=== PATIENT | female | born 1945 | race Caucasian/White ===

== ENCOUNTER 2017-07-12 05:40 | Day surgery (SDC) | payer OTHER, MEDICARE ==
[~2017-07-12] VITALS: Ht 162.6 cm; Wt 81.6 kg
[2017-07-12] MEDS ORDERED: CEFAZOLIN SOD 1 GM in D5W 50 ML IV ONE (06:30)
[2017-07-12] MEDS ORDERED: CEFAZOLIN 1 GM IVPB PREMIX 50 ML IV ONE (06:41)
[2017-07-12 07:05] LABS: PROTHROMBIN TIME 9.8 SECS (9.5-12.5)
[2017-07-12 07:08] LABS: ANION GAP 5 (5-15); CALCIUM 10.2 mg/dL (8.4-11.0); CHLORIDE 107 mmol/L (98-107); CREATININE 1.16 mg/dL (0.55-1.30); GLUCOSE 97 mg/dL (70-99); POTASSIUM 4.4 mmol/L (3.5-5.1); SODIUM SERUM 138 mmol/L (136-145); UREA NITROGEN, BLOOD 27 mg/dL (8-21)
[2017-07-12 07:13] LABS: ALANINE AMINOTRANSFERASE 34 U/L (12-78); ALBUMIN 3.6 g/dL (3.4-4.8); ASPARTATE AMINOTRANSFERASE 24 U/L (10-37); TOTAL BILIRUBIN 0.4 mg/dL (0.0-1.0)
[2017-07-12] MEDS ORDERED: BUPR300T55 PO (07:37)
[2017-07-12] MEDS ORDERED: OMEP40CA33 PO (07:37)
[2017-07-12] MEDS ORDERED: LIP20 PO (07:37)
[2017-07-12] MEDS ORDERED: COR12.5 PO (07:37)
[2017-07-12] MEDS ORDERED: LEVO150T PO (07:37)
[2017-07-12] MEDS ORDERED: POLYMYXIN 500,000/BACIT.10,000 UNITS in NS IRR 1 L IR ONE (08:30)
[2017-07-12] MEDS ORDERED: LR 1,000 ML IV SCH (10:46)
[2017-07-12] MEDS ORDERED: ONDANSETRON HCL 4 MG/2 ML VIAL IVP PRN ×2 (11:00→12:00)
[2017-07-12] MEDS ORDERED: MORPHINE 4 MG/ML INJ. SYRINGE IVP PRN ×3 (11:00)
[2017-07-12] MEDS ORDERED: fentaNYL CITRATE 250 MCG/5 ML AMP IV ONE (11:25)
[2017-07-12] MEDS ORDERED: BUPIVACAINE /EPINEPHRINE/PF 0.5% 30 ML VIAL INJ ONE (11:25)
[2017-07-12] MEDS ORDERED: ROCURONIUM BROMIDE 10 MG/ML (ZEMURON) IV ONE (11:25)
[2017-07-12] MEDS ORDERED: LR 1,000 ML IV.SOLN IV ONE (11:25)
[2017-07-12] MEDS ORDERED: SEVOFLURANE 15 MIN GAS INH ONE (11:25)
[2017-07-12] MEDS ORDERED: MIDAZOLAM HCL 5 MG/ML VIAL (VERSED) IV ONE (11:25)
[2017-07-12] MEDS ORDERED: SUGAMMADEX SODIUM 200 MG/2 ML VIAL IV ONE (11:25)
[2017-07-12] MEDS ORDERED: ONDANSETRON HCL 4 MG/2 ML VIAL IVP ONE (11:25)
[2017-07-12] MEDS ORDERED: NS IRRIG SOLN 1000 ML IR ONE (11:25)
[2017-07-12] MEDS ORDERED: PROPOFOL 200MG/ 20ML VIAL (DIPRIVAN) IV ONE (11:25)
[2017-07-12] MEDS ORDERED: DEXTROSE 50% JECT 50 ML DISP.SYRIN IVP ONE (11:25)
[2017-07-12] MEDS ORDERED: MORPHINE 4 MG/ML INJ. SYRINGE ONE ×2 (11:42→12:08)
[2017-07-12] MEDS ORDERED: HYDROcodone/ACETAMIN 5-325 MG TAB (NORCO/ VICODIN) PO PRN (12:00)
[2017-07-12] MEDS ORDERED: OXYCODONE/ACETAMINOPHEN 5-325 TABLET PO PRN (12:00)
[2017-07-12 13:46] VITALS: BP_SYST 135
[2017-07-12] MEDS: KETOROLAC TROMETHAMINE 30 MG VIAL IVP SCH ×3 (15:59→23:20)
[2017-07-12] MEDS ORDERED: KETOROLAC TROMETHAMINE 30 MG VIAL ONE (16:01)
[2017-07-12] MEDS ORDERED: BIMA2.5D5 OP (18:33)
[2017-07-12] MEDS ORDERED: LATANOPROST 2.5 ML DROPS (XALATAN) OP SCH (19:00)
[2017-07-12] MEDS ORDERED: ATORVASTATIN 20 MG TABLET PO ONE (19:00)
[2017-07-12] MEDS ORDERED: LEVOTHYROXINE SODIUM 0.15 MG TABLET PO SCH (19:00)
[2017-07-12] MEDS ORDERED: BIMATOPROST 0.01%, 2.5 ML EYE DROPS OP SCH (19:00)
[2017-07-12] MEDS ORDERED: buPROPion HCL 150 MG XL TAB PO ONE (19:00)
[2017-07-12] MEDS ORDERED: OMEPRAZOLE 20 MG CAPSULE.DR (PriLOSEC) PO ONE (19:15)
[2017-07-12] MEDS ORDERED: LEVOTHYROXINE SODIUM 0.125 MG TABLET PO ONE (19:15)
[2017-07-12] MEDS ORDERED: LEVOTHYROXINE SODIUM 0.05 MG TABLET PO ONE (19:15)
[2017-07-12] MEDS: CARVEDILOL 12.5 MG TABLET (COREG) PO SCH (20:01)
[2017-07-13 00:05] VITALS: BP_SYST 108
[2017-07-13] MEDS: OXYCODONE/ACETAMINOPHEN 5-325 TABLET PO PRN ×2 (03:06→09:32)
[2017-07-13] MEDS: KETOROLAC TROMETHAMINE 30 MG VIAL IVP SCH (05:38)
[2017-07-13] MEDS ORDERED: LEVOTHYROXINE SODIUM 0.05 MG TABLET PO SCH (07:00)
[2017-07-13] MEDS ORDERED: LEVOTHYROXINE SODIUM 0.125 MG TABLET PO SCH (07:00)
[2017-07-13] MEDS ORDERED: buPROPion HCL 150 MG XL TAB PO SCH (09:00)
[2017-07-13] MEDS ORDERED: OMEPRAZOLE 20 MG CAPSULE.DR (PriLOSEC) PO SCH (09:00)
[2017-07-13] MEDS ORDERED: ATORVASTATIN 20 MG TABLET PO SCH (09:00)
[2017-07-13] MEDS: CARVEDILOL 12.5 MG TABLET (COREG) PO SCH (09:25)
[2017-07-13 09:55] VITALS: BP_SYST 130
[2017-07-13 11:59] VITALS: BP_SYST 100
== END 2017-07-13 12:20 | disposition home or self-care (01) ==
LOC: SDS 05:40 → SMU 05:40 → SDS 07-13 12:20
PROVIDERS: ATTEND Specialist
DX: N84.0 Polyp of corpus uteri (principal); N81.4 Uterovaginal prolapse, unspecified; N81.6 Rectocele; N81.10 Cystocele, unspecified; Z68.31 Body mass index [BMI] 31.0-31.9, adult; Z88.2 Allergy status to sulfonamides; Z79.899 Other long term (current) drug therapy; Z98.890 Other specified postprocedural states; E03.9 Hypothyroidism, unspecified; Z95.0 Presence of cardiac pacemaker; I51.9 Heart disease, unspecified; E78.00 Pure hypercholesterolemia, unspecified; Z90.710 Acquired absence of both cervix and uterus; Z88.8 Allergy status to other drugs, medicaments and biological substances
CPT/HCPCS: 36415; 52000; 57425; 58542; 71045; 80053; 85610; 85730; 87081; 88305; C1727; C1781; C9399; J0690; J1885 ×2; J2250; J2270; J2405; J2704; J3010; J3490; J7120; 88307